=== PATIENT | female | born 1955 | race Caucasian/White ===

== ENCOUNTER → 2016-07-25 | Outpatient (CLI) | payer BC | LOC: GMAB 10:45 | PROVIDERS: ATTEND Family Medicine | DX: E89.0 Postprocedural hypothyroidism (principal) ==

== ENCOUNTER → 2016-10-06 | Outpatient (CLI) | payer BC ==
--- NOTE | 2016-10-06 14:44 | MAM ---
EXAM DESCRIPTION: Screening Mammogram,Bilateral CLINICAL HISTORY: 61 yearsFemaleSCREENING. Postmenopausal. Hormone replacement, not currently. Cyst aspiration and biopsy left breast. Benign. COMPARISON: Digital screening bilateral examination 01/04/2015.. No prior reports available. TECHNIQUE: Bilateral CC and MLO projection full-field images, digital screening mammographic technique. CAD was utilized. FINDINGS: The breast parenchymal density pattern is: Heterogeneously dense breast tissue, which may obscure small masses. No skin thickening or nipple retraction. Bilateral vascular calcifications. Bilateral solitary microcalcifications.. No focal, stellate mass or density, focal asymmetry , and no suspicious microcalcifications bilaterally. Mammographically stable compared to prior examination December 2014. IMPRESSION: BIRAD CATEGORY: 2 BENIGN. Follow-up: Digital screening bilateral routine examination in one year interval from September 2016. Written communication explaining the results and follow-up will be mailed to the patient and referring care provider. According to the [employer], yearly mammograms are recommended starting at age 40 and continuing as long as a woman is in good health. Any breast change noted on a breast self-exam should be reported promptly to the patient's healthcare provider. Breast MRI is recommended for women with an approximately 20-25% or greater lifetime risk of breast cancer, including women with a strong family history of breast or ovarian cancer and women who have been treated for Hodgkin's disease. A negative mammographic report should not delay tissue diagnosis in patients with significant clinical history or physical findings. Extremely dense breast tissue limits the sensitivity of digital mammography. Electronically signed by: Rufino Braswell MD 10/06/2016 2:43 PM CDT
== END | disposition home or self-care (01) ==
LOC: LAB.O 10:50
PROVIDERS: ATTEND Obstetrics & Gynecology
DX: E03.9 Hypothyroidism, unspecified (principal)